=== PATIENT | male | born 1955 | race Caucasian/White ===

== ENCOUNTER 2021-12-14 02:42 | Observation (INO) ==
[2021-12-14] MEDS ORDERED: dilTIAZem HCl 5 MG/ML 5 ML VIAL IV ONE (03:03)
--- NOTE | 2021-12-14 03:26 | Emergency Department Note ---
History of Present Illness General Chief complaint: Cardiac Assessment Stated complaint: RAPID HEARTBEAT History of Present Illness 66-year-old male presents emergency department states that he had a few gin and tonics earlier today and then this evening at rest he noticed that his heart rate was up his Apple Watch said that he could be in atrial fibrillation. Patient has no history of the same. Patient denies nausea vomiting chest pain shortness of breath. There are no other complaints from the patient he was doing well up until this evening. Past Med/Surg History Immunizations: Past medical history back problems; social is positive for alcohol Review of Systems A total of 10 systems reviewed and were otherwise negative Constitutional: no fever Respiratory: no cough Cardiovascular: + palpitations; no chest pain and no dyspnea at rest Gastrointestinal: no abdominal pain Physical Exam Vital Signs Vital Signs - 24 hr 12/14/21 03:30 12/14/21 04:08 12/14/21 04:37 Pulse Rate [Apical] 142 H 114 H 109 H Pulse Rhythm [Apical] Irregular Irregular Respiratory Rate 18 16 18 Respiratory Effort / Characteristics Non-Labored Spontaneous Non-Labored Spontaneous Non-Labored Spontaneous Respiratory Depth Normal Normal Normal Respiratory Pattern Regular Regular Regular Blood Pressure [Left Arm] 161/121 H 135/73 125/85 Blood Pressure Mean [Left Arm] 134 93 98 Blood Pressure Position [Left Arm] Semi-fowlers Semi-fowlers Pulse Oximetry 98 98 98 Oxygen Delivery Method Room Air Room Air Room Air 12/14/21 05:12 Pulse Rate [Apical] 130 H Pulse Rhythm [Apical] Respiratory Rate 18 Respiratory Effort / Characteristics Non-Labored Spontaneous Respiratory Depth Normal Respiratory Pattern Regular Blood Pressure [Left Arm] 119/71 Blood Pressure Mean [Left Arm] 87 Blood Pressure Position [Left Arm] Semi-fowlers Pulse Oximetry 99 Oxygen Delivery Method Room Air GENERAL: Patient is awake alert in no acute distress patient is resting comfortably and showing no signs of anxiety EYES: The conjunctivae are clear. The pupils are round and reactive. EARS, NOSE, MOUTH AND THROAT: The nose is without any evidence of any deformity. Mucous membranes are moist. Tongue is midline. NECK: The neck is nontender and supple. RESPIRATORY: Normal respiratory effort is noted there is no evidence of wheezing rhonchi or rales CARDIOVASCULAR: Irregularly irregular and tachycardic noted there no murmurs rubs or gallops normal S1 normal S2. GASTROINTESTINAL: The abdomen is soft. Abdomen is nontender. PELVIS: The Pelvis is stable. No tenderness to palpation is noted. BACK: No midline tenderness or or step-off noted range of motion in flexion extension as well as rotation no signs of muscle spasm noted MUSCULOSKELETAL/EXTREMITIES: There is no evidence of gross deformity full range of motion is noted in the hips and shoulders. SKIN: There is no obvious evidence of any rash. There are no petechiae, pallor or cyanosis noted. NEUROLOGIC: Patient is awake alert and oriented x3 strength is symmetric Course Reevaluation(s) Reevaluation #1: Patient was started on IV Cardizem push and then IV Cardizem drip. Patient's heart rate decreased from 160s down to 010 5-1 10. This case was discussed with the hospitalist for admission Time: 05:21 Reevaluation #2: Patient is hemodynamically stable not hypotensive. In no distress with no current chest pain Time: 05:21 Consultations Consultation #1: Spoke with the [facility] hospitalist for admission Time: 05:21 Administered Medications Diltiazem HCl 125 mg/ Dextrose 125 mls @ 5 mls/hr IV .Q24H [facility]; Protocol Stop: 01/13/22 03:44 Last Titration: 12/14/21 05:11 Dose: 15 mg/hr, 15 mls/hr Documented By: MANGO Co-signed By: BELL Admin: 12/14/21 03:51 Dose: 10 mg/hr, 10 mls/hr Documented By: MANGO Co-signed By: CIARA Discontinued Medications Diltiazem HCl (Diltiazem Hcl 5 Mg/Ml 5 Ml Vial) 25 mg IV NOW STA Stop: 12/14/21 03:37 Last Admin: 12/14/21 03:50 Dose: 25 mg Documented By: MANGO Co-signed By: CIARA Miscellaneous (Stat Iv Infusion Titration Per Protocol) 1 each N/A NOW STA Stop: 12/14/21 03:37 Last Admin: 12/14/21 03:51 Dose: Not Given Documented By: MANGO Critical Care Time Critical Care Time: Yes Total Critical Care Time: 35 I have personally spent greater than 35 minutes of critical care time in the direct management of this patient. This includes bedside care, interpretation of diagnostic studies, and testing, discussion with consultants, patient, and fa stevie members, and other required patient management activities. These minutes are in excess of all separately billable procedures. Medical Decision Making Medical Records Attestation: I reviewed the patient's medical records. Home Medications Current Medication List: was personally reviewed by me Laboratory Data Attestation: I reviewed the patient's lab results. Result diagrams: 12/14/21 03:00 12/14/21 03:00 Lab Results 12/14/21 12/14/21 12/14/21 Range/Units 03:00 03:00 03:00 WBC 9.29 (4.8-10.8) K/ul RBC 5.27 (4.63-6.08) M/uL Hgb 16.1 (14.0-18.0) g/dl Hct 46.6 (40.1-51.0) % MCV 88.4 (80.0-100.0) fL MCH 30.6 (25.0-34.0) pg MCHC 34.5 (32.0-36.0) g/dL RDW Std Deviation 39.4 (36.4-46.3) fL RDW Coeff of Toñito 12.3 (11.5-14.5) % Plt Count 233 (130-400) K/uL MPV 10.6 (9.4-12.4) fL PT 10.9 (9.0-12.0) Seconds INR 1.0 (0.9-1.1) APTT 27.2 (21.0-31.0) Seconds PTT Ratio 1.0 Sodium 138 (136-145) mmol/L Potassium 3.5 (3.5-5.1) mmol/L Chloride 104 (98-107) mmol/L Carbon Dioxide 26 (21-32) mmol/L Anion Gap 8 (3-11) BUN 14 (6-23) mg/dl Creatinine 0.82 (0.6-1.4) mg/dl Est Cr Clr Drug Dosing Not Reportable Est GFR ( Amer) 108.3 ml/min Est GFR (Non-Af Amer) 93.5 ml/min BUN/Creatinine Ratio 17.1 (10-20) Glucose 98 (70-99(Fasting)) mg/dl Calcium 9.4 (8.5-10.1) mg/dl Total Bilirubin 0.4 (0.2-1.0) mg/dl AST 24 (13-39) U/L ALT 21 (7-52) U/L Alkaline Phosphatase 62 (34-104) U/L Troponin I High Sens 7.2 (0-20) pg/ml Total Protein 7.3 (6.0-8.3) gm/dl Albumin 4.7 (3.4-5.0) gm/dl Globulin 2.6 (2.5-4.0) gm/dl Albumin/Globulin Ratio 1.8 (0.9-2) SARS-CoV-2, RNA, NAAT (NEGATIVE) 12/14/21 Range/Units 03:54 WBC (4.8-10.8) K/ul RBC (4.63-6.08) M/uL Hgb (14.0-18.0) g/dl Hct (40.1-51.0) % MCV (80.0-100.0) fL MCH (25.0-34.0) pg MCHC (32.0-36.0) g/dL RDW Std Deviation (36.4-46.3) fL RDW Coeff of Toñito (11.5-14.5) % Plt Count (130-400) K/uL MPV (9.4-12.4) fL PT (9.0-12.0) Seconds INR (0.9-1.1) APTT (21.0-31.0) Seconds PTT Ratio Sodium (136-145) mmol/L Potassium (3.5-5.1) mmol/L Chloride (98-107) mmol/L Carbon Dioxide (21-32) mmol/L Anion Gap (3-11) BUN (6-23) mg/dl Creatinine (0.6-1.4) mg/dl Est Cr Clr Drug Dosing Est GFR ( Amer) ml/min Est GFR (Non-Af Amer) ml/min BUN/Creatinine Ratio (10-20) Glucose (70-99(Fasting)) mg/dl Calcium (8.5-10.1) mg/dl Total Bilirubin (0.2-1.0) mg/dl AST (13-39) U/L ALT (7-52) U/L Alkaline Phosphatase (34-104) U/L Troponin I High Sens (0-20) pg/ml Total Protein (6.0-8.3) gm/dl Albumin (3.4-5.0) gm/dl Globulin (2.5-4.0) gm/dl Albumin/Globulin Ratio (0.9-2) SARS-CoV-2, RNA, NAAT NEGATIVE (NEGATIVE) Imaging Data Attestation: I personally reviewed and interpreted this imaging study as follows: ECG Data Attestation: I personally reviewed and interpreted this ECG as follows: Additional Comments: EKG interpreted by me rapid atrial fibrillation rate of [address]-T change no obvious ST segment elevation or depression normal axis MDM Narrative Medical decision making differential diagnosis includes rapid atrial fibrillation electrolyte abnormality, cardiac dysrhythmia, metabolic derangement, angina, acute coronary syndrome. Plan is to check labs EKG chest x-ray, treat with IV Cardizem Patient was evaluated for what appears to be new onset rapid atrial fibrillation, patient was given IV Cardizem, patient was started on an IV Cardizem drip. Patient did have alcohol earlier this evening this may have been the precipitating event. Patient's lab work currently is unremarkable. Will be admitted for further evaluation of this cardiac dysrhythmia. Impression & Plan Atrial fibrillation with rapid ventricular response Discharge Plan Visit Data Chief Complaint: Cardiac Assessment Stated Complaint: RAPID HEARTBEAT ED Provider: William Porter Discharge Problem: Atrial fibrillation with rapid ventricular response Patient Disposition: Being Evaluated by Hospitalist Forms Stand Alone Forms: My [facility] Referrals Referrals: PCP,NO [Primary Care Provider] -
[2021-12-14] MEDS ORDERED: dilTIAZem HCl 5 MG/ML 5 ML VIAL IV STA (03:36)
[2021-12-14] MEDS ORDERED: STAT IV Infusion **Titration per Protocol STA (03:36)
[2021-12-14 03:39] LABS: Hematocrit (blood only) 46.6 % (40.1-51.0); Hemoglobin 16.1 g/dl (14.0-18.0); Mean Corpuscular Hemoglobin 30.6 pg (25.0-34.0); Mean Corpuscular Hgb Conc 34.5 g/dL (32.0-36.0); Mean Corpuscular Volume 88.4 fL (80.0-100.0); Mean Platelet Volume 10.6 fL (9.4-12.4); Platelet Count 233 K/uL (130-400); RDW Coefficient of Variation 12.3 % (11.5-14.5); RDW Standard Deviation 39.4 fL (36.4-46.3); Red Blood Count 5.27 M/uL (4.63-6.08); White Blood Count 9.29 K/ul (4.8-10.8)
[2021-12-14] MEDS ORDERED: dilTIAZem HCL 125 MG in DEXTROSE 5% 100 ML IV SCH (03:45)
[2021-12-14 03:52] LABS: Partial Thromboplastin Time 27.2 Seconds (21.0-31.0); Prothrombin Time 10.9 Seconds (9.0-12.0)
[2021-12-14 04:05] LABS: Troponin I High Sensitivity 7.2 pg/ml (0-20)
[2021-12-14 04:22] LABS: Alanine Aminotransferase 21 U/L (7-52); Albumin Globulin Ratio 1.8 (0.9-2); Albumin Level 4.7 gm/dl (3.4-5.0); Alkaline Phosphatase 62 U/L (34-104); Anion Gap 8 (3-11); Aspartate Aminotransferase 24 U/L (13-39); BUN Creatinine Ratio 17.1 (10-20); Bilirubin,Total 0.4 mg/dl (0.2-1.0); Blood Urea Nitrogen 14 mg/dl (6-23); Calcium 9.4 mg/dl (8.5-10.1); Carbon Dioxide 26 mmol/L (21-32); Chloride 104 mmol/L (98-107); Est GFR (African American) 108.3 ml/min; Est GFR (Non-African American) 93.5 ml/min; Globulin 2.6 gm/dl (2.5-4.0); Glucose 98 mg/dl (70-99(Fasting)); Potassium 3.5 mmol/L (3.5-5.1); Sodium 138 mmol/L (136-145); Total Protein 7.3 gm/dl (6.0-8.3)
--- NOTE | 2021-12-14 04:58 | History & Physical Report ---
Date of Service December 14, 2021 Assessment & Plan (1) Atrial fibrillation with rapid ventricular response: Plan: 66yo male without significant PMH presents with a 3-hour history of racing heartbeat/palpitations, found on admission to be in atrial fibrillation with RVR (new-onset). Atrial fibrillation with RVR Patient presents with new-onset atrial fibrillation with RVR Hemodynamically stable Cardizem gtt started in ED, continue for now hsTroponin negative Admit to PCU Echo ordered TSH ordered Potassium 3.5, magnesium level pending - replete to keep K above 4.0 and mag above 2.0 AC: lovenox SQ 30mg q12h FEN: regular diet Code status: full code DVT ppx: lovenox Dispo: PCU telemetry History of Present Illness Primary Care Provider: NO PCP 66yo male without significant PMH presents with a 3-hour history of racing heartbeat/palpitations. Patient was laying in bed when symptoms started. Patient reports he hasn't experienced this before. Patient took his heart rate with his apple watch, which reported he was in afib, and this is what prompted patient's presenting to the ED. Patient denies fever, chills, vision changes, CP, SOB, edema, abdominal pain, nausea, vomiting, hematochezia, melena, back pain, lightheadedness, dizziness, numbness, tingling, weakness, or other symptoms. Denies recent illness and recent travel. Upon arrival, vitals were notable for elevated BP (160s/120s) and tachycardia (100-140s); no tachypnea, patient afebrile, spO2 adequate on room air. Initial labs were unremarkable; no leukocytosis, no anemia, platelets wnl, no electrolyte abnormalities, creatinine not elevated, LFTs wnl, Tbili not elevated, covid PCR negative. In the ED, patient was started on diltiazem gtt. EKG: atrial fibrillation with RVR (rate in 150s), no overt ischemic change CXR: no acute process Surrogate decision-maker in case of an emergency: Nicole Morris (cell: [phone]) Allergies Allergy/AdvReac Type Severity Reaction Status Date / Time No Known Allergies Allergy Unverified 12/14/21 07:45 Home Medications Medication Instructions Recorded Confirmed Type metoprolol succinate 50 mg 100 mg PO QAM 30 days #60 tabs 12/14/21 Rx tablet,extended release 24 hr Past Med/Surg History Social History Smoking Status: Never smoker Second Hand Exposure: No; Hx Alcohol Use: Yes Alcohol type: wine Hx Substance Use: No Preferred Language: Syriac Communication Ability: Effective Supervisor Assembly Required: No Beliefs That Will Affect Care: None Current Living Situation: Spouse Feels Safe at Home: Yes Assistive Devices: None Physical Exam Physical Exam: Constitutional: well-appearing, no acute distress HEENT: NCAT, no conjunctival injection CV: tachycardic in the 100-120s, no murmur appreciated, extremities well- perfused, no LE edema Resp: CTABL, no wheezes/rales/rhonchi appreciated, no increased work of breathing GI: soft, nondistended, nontender, BS normoactive MSK: no gross deformities appreciated Skin: warm, dry, no rash appreciated Neuro: alert, oriented, no focal neurologic deficit appreciated Results & Data Results & Data ([facility]) Vital Signs (Past 12 Hours) Vital Signs Pulse Resp BP Pulse Ox O2 Del Method 12/14/21 04:37 109 H 18 125/85 98 Room Air 12/14/21 04:08 114 H 16 135/73 98 Room Air 12/14/21 03:30 142 H 18 161/121 H 98 Room Air Supervising Physician Co-Signing Physician Notes Attending addendum: I have physically seen this patient, have supervised the medical residents activities, and agree with the H&P unless as otherwise noted. Assessment and Plan: Atrial fibrillation with RVR- New onset The patient will be admitted to telemetry for serial cardiac enzymes, serial EKG's, cardiac rhythm monitoring and a 2-D echocardiogram with Dopplers. Continue Cardizem drip for now begun in the ED Potassium 3.5, give Klor-Con 40 mEq p.o. to target potassium of 4 Magnesium level added to current labs, will optimize to keep magnesium around 2 Lovenox 30 mg SQ every 12 hours Aspirin 81 mg daily Consult cardiology if persistent Remaining orders and notations as noted Resident Activity Tracking Resident Involvement: Resident Care Provided and Molding Process Technician Coverage Note Care Provided: Adult Hospital Medicine
--- NOTE | 2021-12-14 07:08 | Hospitalist Progress Note ---
Date of Service December 14, 2021 Assessment & Plan (1) Atrial fibrillation with rapid ventricular response: Plan: 66yo male without significant PMH presents with a 3-hour history of racing heartbeat/palpitations, found on admission to be in atrial fibrillation with RVR (new-onset). Atrial fibrillation with RVR Patient presents with new-onset atrial fibrillation with RVR Hemodynamically stable Cardizem gtt started in ED, continue for now hsTroponin negative Admit to PCU Echo ordered TSH ordered Potassium 3.5, magnesium level pending - replete to keep K above 4.0 and mag above 2.0 AC: lovenox SQ 30mg q12h CHADSVASc: 0 Rate Control: Anticoagulation: 12/14: CBC & CMP wnl, TSH pending, COVID - FEN: regular diet Code status: full code DVT ppx: lovenox Dispo: PCU telemetry Surrogate decision-maker in case of an emergency: Nicole Morris (cell: [phone]) Admission and Anticipated Discharge Date Admission Date: December 14, 2021 Chaya Lott is a 66yo male without significant PMH who presented with a 3-hour history of palpitations/racing heart beat. Patient was found to be in AFib and was admitted for management. Patient was started on diltiazem gtt in ED. 12/14: Review of Systems Review of Systems: As per HPI Physical Exam Physical Exam: Constitutional: well-appearing, no acute distress HEENT: NCAT, no conjunctival injection CV: tachycardic in the 100-120s, no murmur appreciated, extremities well- perfused, no LE edema Resp: CTABL, no wheezes/rales/rhonchi appreciated, no increased work of breathing GI: soft, nondistended, nontender, BS normoactive MSK: no gross deformities appreciated Skin: warm, dry, no rash appreciated Neuro: alert, oriented, no focal neurologic deficit appreciated Results & Data Results & Data ([facility]) Vital Signs (Past 12 Hours) Vital Signs Temp Pulse Resp BP Pulse Ox Pulse Ox O2 Del Method 12/14/21 06:31 36.8 C 84 19 127/81 100 Room Air 12/14/21 06:11 36.8 C 84 16 121/81 100 Room Air 12/14/21 06:24 99 12/14/21 05:51 94 H 18 111/67 98 Room Air 12/14/21 05:12 130 H 18 119/71 99 Room Air 12/14/21 04:37 109 H 18 125/85 98 Room Air 12/14/21 04:08 114 H 16 135/73 98 Room Air 12/14/21 03:30 142 H 18 161/121 H 98 Room Air O2 Del Method 12/14/21 06:31 12/14/21 06:11 12/14/21 06:24 Room Air 12/14/21 05:51 12/14/21 05:12 12/14/21 04:37 12/14/21 04:08 12/14/21 03:30 Resident Activity Tracking Resident Involvement: Resident Care Provided Care Provided: Adult Hospital Medicine
[2021-12-14 07:21] LABS: Estimated Average Glucose 108 mg/dl; Hemoglobin A1C 5.4 % (4.5-5.6)
[2021-12-14] MEDS: Patient's ALLERGY Info needs ENTERED SCH ×3 (07:46→07:57)
[2021-12-14] MEDS ORDERED: ENOXAPARIN INJ 30 MG/0.3 ML SYR SQ SCH (08:00)
[2021-12-14] MEDS ORDERED: POTASSIUM CHLORIDE CRTAB 20 MEQ TABCR PO SCH (08:00)
[2021-12-14] MEDS: MAGNESIUM SULFATE / D5W 1 GM/100 ML BAG IV SCH ×3 (08:44→12:41)
--- NOTE | 2021-12-14 10:12 | XRay Report ---
XR chest 1V portable HISTORY: PALPITATIONS COMPARISON: None. FINDINGS: No focal lung consolidations to suggest a pneumonia. No evidence for pulmonary edema. Tiny dense focus within the left upper lobe is likely due to the overlapping ribs or a calcified granuloma . Otherwise, the lungs are clear. Cardiac silhouette is normal in size. No pleural effusions. No pneu mothorax. IMPRESSION: No acute process. ACT 112: Negative or not required by law. Electronically signed by: Chris Alford M.D. 12/14/2021 10:10 AM
--- NOTE | 2021-12-14 10:19 | Discharge Summary ---
Date of Service December 14, 2021 Admission HPI Per Admitting Provider 66yo male without significant PMH presents with a 3-hour history of racing heartbeat/palpitations. Patient was laying in bed when symptoms started. Patient reports he hasn't experienced this before. Patient took his heart rate with his apple watch, which reported he was in afib, and this is what prompted patient's presenting to the ED. Patient denies fever, chills, vision changes, CP, SOB, edema, abdominal pain, nausea, vomiting, hematochezia, melena, back pain, lightheadedness, dizziness, numbness, tingling, weakness, or other symptoms. Denies recent illness and recent travel. Upon arrival, vitals were notable for elevated BP (160s/120s) and tachycardia (100-140s); no tachypnea, patient afebrile, spO2 adequate on room air. Initial labs were unremarkable; no leukocytosis, no anemia, platelets wnl, no electrolyte abnormalities, creatinine not elevated, LFTs wnl, Tbili not elevated, covid PCR negative. In the ED, patient was started on diltiazem gtt. EKG: atrial fibrillation with RVR (rate in 150s), no overt ischemic change CXR: no acute process Surrogate decision-maker in case of an emergency: Nicole Morris (cell: [phone]) Admission Exam Per Admitting Provider Constitutional: well-appearing, no acute distress HEENT: NCAT, no conjunctival injection CV: tachycardic in the 100-120s, no murmur appreciated, extremities well- perfused, no LE edema Resp: CTABL, no wheezes/rales/rhonchi appreciated, no increased work of breathing GI: soft, nondistended, nontender, BS normoactive MSK: no gross deformities appreciated Skin: warm, dry, no rash appreciated Neuro: alert, oriented, no focal neurologic deficit appreciated Principal Diagnosis Atrial Fibrillation w/ RVR Discharge Exam Gen: NAD, alert, interactive HEENT: Supple, no LAD, no thyromegaly, no JVD Resp:Non-labored, no wheezing/rhonchi/rales, CTAB CV:irregularly-irregular, regular rate, normal S1/S2, no M/R/G Abd: Soft, non-distended, no TTP, normoactive bowels, no masses Extr: 2+ dp bilaterally, no edema Discharge Data Allergies Allergy/AdvReac Type Severity Reaction Status Date / Time No Known Allergies Allergy Unverified 12/14/21 07:45 Consultations 12/14/21 04:58 ED Decision to Admit Stat Ordered Studies Laboratory Results WBC 9.29 K/ul (4.8-10.8) 12/14/21 03:00 RBC 5.27 M/uL (4.63-6.08) 12/14/21 03:00 Hgb 16.1 g/dl (14.0-18.0) 12/14/21 03:00 Hct 46.6 % (40.1-51.0) 12/14/21 03:00 MCV 88.4 fL (80.0-100.0) 12/14/21 03:00 MCH 30.6 pg (25.0-34.0) 12/14/21 03:00 MCHC 34.5 g/dL (32.0-36.0) 12/14/21 03:00 RDW Std Deviation 39.4 fL (36.4-46.3) 12/14/21 03:00 RDW Coeff of Toñito 12.3 % (11.5-14.5) 12/14/21 03:00 Plt Count 233 K/uL (130-400) 12/14/21 03:00 MPV 10.6 fL (9.4-12.4) 12/14/21 03:00 PT 10.9 Seconds (9.0-12.0) 12/14/21 03:00 INR 1.0 (0.9-1.1) 12/14/21 03:00 APTT 27.2 Seconds (21.0-31.0) 12/14/21 03:00 PTT Ratio 1.0 12/14/21 03:00 Sodium 138 mmol/L (136-145) 12/14/21 03:00 Potassium 3.5 mmol/L (3.5-5.1) 12/14/21 03:00 Chloride 104 mmol/L (98-107) 12/14/21 03:00 Carbon Dioxide 26 mmol/L (21-32) 12/14/21 03:00 Anion Gap 8 (3-11) 12/14/21 03:00 BUN 14 mg/dl (6-23) 12/14/21 03:00 Creatinine 0.82 mg/dl (0.6-1.4) 12/14/21 03:00 Est Cr Clr Drug Dosing Not Reportable 12/14/21 03:00 Est GFR ( Amer) 108.3 ml/min 12/14/21 03:00 Est GFR (Non-Af Amer) 93.5 ml/min 12/14/21 03:00 BUN/Creatinine Ratio 17.1 (10-20) 12/14/21 03:00 Glucose 98 mg/dl (70-99(Fasting)) 12/14/21 03:00 Estimat Average Glucose 108 mg/dl 12/14/21 06:56 Hemoglobin A1c 5.4 % (4.5-5.6) 12/14/21 06:56 Calcium 9.4 mg/dl (8.5-10.1) 12/14/21 03:00 Magnesium 1.8 mg/dl (1.7-2.4) 12/14/21 06:56 Total Bilirubin 0.4 mg/dl (0.2-1.0) 12/14/21 03:00 AST 24 U/L (13-39) 12/14/21 03:00 ALT 21 U/L (7-52) 12/14/21 03:00 Alkaline Phosphatase 62 U/L (34-104) 12/14/21 03:00 Troponin I High Sens 7.2 pg/ml (0-20) 12/14/21 03:00 Total Protein 7.3 gm/dl (6.0-8.3) 12/14/21 03:00 Albumin 4.7 gm/dl (3.4-5.0) 12/14/21 03:00 Globulin 2.6 gm/dl (2.5-4.0) 12/14/21 03:00 Albumin/Globulin Ratio 1.8 (0.9-2) 12/14/21 03:00 TSH 3.400 uIu/ml (0.300-4.500) 12/14/21 06:56 SARS-CoV-2, RNA, NAAT NEGATIVE (NEGATIVE) 12/14/21 03:54 Impressions Chest X-Ray 12/14/21 03:22 XR chest 1V portable HISTORY: PALPITATIONS COMPARISON: None. FINDINGS: No focal lung consolidations to suggest a pneumonia. No evidence for pulmonary edema. Tiny dense focus within the left upper lobe is likely due to the overlapping ribs or a calcified granuloma. Otherwise, the lungs are clear. Cardiac silhouette is normal in size. No pleural effusions. No pneumothorax. IMPRESSION: No acute process. Hospital Course (1) Atrial fibrillation with rapid ventricular response: 66yo male without significant PMH presents with a 3-hour history of racing heartbeat/palpitations, found on admission to be in atrial fibrillation with RVR (new-onset). Atrial fibrillation with RVR Patient presents with new-onset atrial fibrillation with RVR Hemodynamically stable Cardizem gtt started in ED, continue for now hsTroponin negative Admit to PCU Echo ordered TSH ordered Potassium 3.5, magnesium level pending - replete to keep K above 4.0 and mag above 2.0 AC: lovenox SQ 30mg q12h CHADSVASc: 0 - Ongoing palpitations, but much improved from presentation, no CP, dyspnea, or shortness of breath w/ exertion. - Rate Control: Transition from Cardizem to Metoprolol succinate 100 mg PO daily - Anticoagulation: Not indicated d/t CHADSVASc of 0, patient elected to proceed without anticoagulation at this time, will revisit if additional risks develop - 12/14: CBC & CMP wnl, TSH-, COVID -, Echo pending - Patient provided appointment to follow up with myself as PCP (Wednesday 12/20 at 10:30 AM) LFEN: regular diet Code status: full code DVT ppx: lovenox Dispo: PCU telemetry Surrogate decision-maker in case of an emergency: Nicole Morris (cell: [phone]) Total Time Total Time Spent Total Time Spent (In Minutes): <30 Discharge Plan Discharge Items Patient Disposition: Home - Self-Care Reason For Visit: NEW ONSET AFIB RVR Discharge Diagnosis: Atrial Fibrillation w/ RVR Activity: Per Instructions section Non-emergency contact: Primary Care Provider Follow-up/Referrals: Samy Das DO [Resident] - PCP,NO [Primary Care Provider] - Diet: Regular Addtl Attending Provider Instructions: You were admitted to the hospital for atrial fibrillation with rapid ventricular rate. You were treated with rate control (Diltiazem) via IV and ultimately transitioned to oral rate control (Metoprolol). A discharge summary will be sent to your primary care physician to ensure continuity of care. Please bring this discharge summary with you to your next office appointment so that your provider can review it at that time. Follow-up appointments: - Make a follow-up appointment with your new PCP (Dr. Samy Das) within the next week. It is very important that you follow up with them shortly after discharge from the hospital. We have requested a follow-up appointment with your primary care physician within one week of discharge. Please call their office if you do not hear from them. Medications: - Your medication list has been reviewed and reconciled upon discharge to ensure accuracy and continuity of care. An updated list of all your medications is included with your hospital discharge paperwork. Please review this list closely, and make note of any changes. - We sent a new medication called Metoprolol succinate. Please take please take 100 mg daily. - If you have any issues filling these prescriptions, please call [phone] and ask to leave a message for Dr. Das. - Take your medications as instructed; do not skip a dose of your medicines. Make sure all of your doctors know every medicine you are taking (including hovl-gak-zqhqimv medicines, vitamins, and supplements). - Call your primary care provider before taking any new medicines (including over- the-counter medicines, vitamins, and supplements), because some of these may interact with your current medications, or may make your symptoms worse. - Tell your primary care provider if you cannot afford your medications. Contact your Primary Care Provider if you experience: - Palpitations - Difficulty following your treatment plan or taking medications Call 911 or go to the emergency department if you experience: - Sudden, severe abdominal pain or nausea/vomiting - Severe chest pain, or chest pain that radiates (moves) to your jaw or arm - Sudden, severe shortness of breath or difficulty breathing It was a pleasure to be a part of your care, Dr. Samy Das Pending Studies at Discharge: No Stand-Alone Forms: My [employer], Smoking Cessation Medications and DC Order Prescriptions: New metoprolol succinate 50 mg Tablet Extended Release 24 Hr 100 mg PO QAM 30 Days Qty: 60 3RF Discharge Orders: Discharge Order (Routine); Ordered 12/14/21 Ordered By: Samy Nava/Other Patient Handouts: AFib Admission Data Admit Date/Time: 12/14/21 05:34 Attending Provider: Robbie Hadley Admit Provider: Nader Robison Primary Care Provider: PCP,NO Other Providers: Neil Mcbride Supervising Physician Co-Signing Physician Notes I personally examined the patient and verified all novoa points of history and exam, discussed case, and agree with decision making with Dr Das Feeling better overall. Still feels palpitations but less than before. No dyspnea on exertion no chest pain no shortness of breath. Vitals noted, in general he is awake and alert pleasant no distress. HEENT normocephalic atraumatic mucous membranes moist, cardio is A. fib ranging from about 95-1 10 whenever I see him. Breathing unlabored no accessory muscle use good effort. Skin shows no rashes no pallor or icterus. Neuro without focal deficits. New onset A. fib/RVRrate control improvingtransition to p.o. metoprolol, likely home with outpatient titration of meds and outpatient follow-up with cardiology to discuss rate versus rhythm strategy. Appears that he will likely be safe for home today. Discussed anticoagulation, although his [id number] is 0, so not clearly warranted. Does not believe he has sleep apnea, discussed interface of alcohol with A. fib. echo pending. Otherwise as above Resident Activity Tracking Resident Involvement: Resident Care Provided Care Provided: Adult Hospital Medicine
[2021-12-14] MEDS ORDERED: METOPROLOL SUCC 50MG EXT REL TAB PO SCH (10:30)
[2021-12-14] MEDS ORDERED: POTASSIUM CHLORIDE CRTAB 20 MEQ TABCR PO STA (10:42)
--- NOTE | 2021-12-14 13:38 | XCELERA ---
[id number] \\[id number]
--- NOTE | 2021-12-14 16:45 | Electrocardiogram Report ---
Test Reason : Blood Pressure : / mmHG Vent. Rate : 158 BPM Atrial Rate : 144 BPM P-R Int : 000 ms QRS Dur : 068 ms QT Int : 296 ms P-R-T Axes : 000 087 040 degrees QTc Int : 480 ms Atrial fibrillation with rapid ventricular response Nonspecific ST abnormality Abnormal ECG No previous ECGs available Confirmed by Keegan Mendez ([id number]) on 12/14/2021 4:45:31 PM Referred By: REFERRED SELF Confirmed By:Keegan Mendez
--- NOTE | 2021-12-14 17:23 | Billing Data ---
Date of Service December 14, 2021 Coding Level of Care Code D/C DAY MANAGEMENT <30 MINS
--- NOTE | 2021-12-14 21:01 | Billing Data ---
Date of Service December 14, 2021 Coding Level of Care Code INT OBSERVATION CARE 70M LVL 3
== END 2021-12-14 18:50 | disposition home or self-care (01) | DRG 310 ==
LOC: ED 02:42 → 2S 05:34 → SUATTDRO 05:34 → INTOOBSV 05:34 → 2S 05:56
DX: I48.91 Unspecified atrial fibrillation